=== PATIENT | female | born 1975 | race Caucasian/White ===

== ENCOUNTER 2016-10-13 15:10 | Emergency (ER) | payer BC, OTHER ==
[2016-10-13] MEDS ORDERED: DIPHENHYDRAMINE 50 MG/ML SOL IV ONE ×2 (15:27→19:15)
[2016-10-13] MEDS ORDERED: HYDROMORPHONE HCL 2 MG/ML 1 ML SOL IV ONE ×3 (15:28→18:08)
[2016-10-13] MEDS ORDERED: KETOROLAC TROMETHAMINE 30 MG/ML SOL IV ONE (15:28)
[2016-10-13] MEDS ORDERED: DIPHENHYDRAMINE 50 MG/ML SOL ONE ×2 (15:30→19:19)
[2016-10-13] MEDS ORDERED: KETOROLAC TROMETHAMINE 30 MG/ML SOL ONE (15:30)
[2016-10-13] MEDS ORDERED: HYDROMORPHONE HCL 2 MG/ML 1 ML SOL ONE ×3 (15:30→18:10)
[2016-10-13] MEDS ORDERED: SODIUM CHLORIDE 0.9% 1000ML 1,000 ML IV SCH (15:30)
[2016-10-13] MEDS ORDERED: SODIUM CHLORIDE 0.9% FLUSH 10 ML SOL IV PRN (16:07)
[2016-10-13] MEDS ORDERED: ONDANSETRON HCL 4 MG/2 ML 4 MG in SODIUM CHLORIDE 0.9% 100 ML 100 ML IV ONE (16:33)
[2016-10-13] MEDS ORDERED: ONDANSETRON HCL 4 MG/2 ML SOL IV ONE (16:35)
[2016-10-13] MEDS ORDERED: ONDANSETRON HCL 4 MG/2 ML SOL ONE (16:37)
[2016-10-13] MEDS ORDERED: SODIUM CHLORIDE 0.9% 1000ML 1,000 ML IV ONE (16:50)
[2016-10-13] MEDS ORDERED: WATER, STERILE 20 ML 20 ML ONE ×2 (17:52)
[2016-10-13] MEDS ORDERED: METHYLPREDNISOLONE 1 GM/ML PDS 1,000 MG/16 ML PDS IV ONE (18:00)
[2016-10-13] MEDS ORDERED: PROCHLORPERAZINE EDISYLATE 5 MG/ML SOL IV ONE (18:38)
[2016-10-13] MEDS ORDERED: PROCHLORPERAZINE EDISYLATE 5 MG/ML SOL ONE (18:40)
[2016-10-13 19:18] VITALS: BP 133/70; PULSE 67; RESP 12; TEMP 98.4; O2SAT 94
== END 2016-10-13 20:05 | disposition home or self-care (01) | DRG 103 ==
LOC: ED 15:10
DX: G43.119 Migraine with aura, intractable, without status migrainosus (principal); R11.2 Nausea with vomiting, unspecified
CPT/HCPCS: 96365; 96366; 96374; 96375; 99070; 99284; 99285; J0780; J1170; J1200; J1885; J2405; J2930

== ENCOUNTER 2016-11-24 19:07 | Emergency (ER) | payer OTHER ==
[2016-11-24 19:12] VITALS: TEMP 98
[2016-11-24] MEDS ORDERED: VALPROATE SODIUM IV ONE ×2 (19:21→19:38)
[2016-11-24] MEDS ORDERED: HYDROMORPHONE HCL 2 MG/ML SOL IV ONE ×3 (19:21→22:37)
[2016-11-24] MEDS ORDERED: SODIUM CHLORIDE 0.9% IV ONE (19:21)
[2016-11-24] MEDS ORDERED: DIPHENHYDRAMINE 50 MG/ML SOL IV ONE ×2 (19:21→21:46)
[2016-11-24] MEDS ORDERED: ONDANSETRON HCL 4 MG/2 ML SOL IV ONE (19:21)
[2016-11-24] MEDS ORDERED: SOLUMEDROL 125 MG/2 ML 125 MG/2 ML PDS IV ONE (19:22)
[2016-11-24] MEDS ORDERED: SODIUM CHLORIDE 0.9% 1000ML 1,000 ML IV SCH (19:30)
[2016-11-24] MEDS: SODIUM CHLORIDE 0.9% FLUSH 10 ML SOL IV PRN ×6 (19:33→22:50)
[2016-11-24] MEDS ORDERED: HYDROMORPHONE HCL 2 MG/ML SOL ONE ×3 (19:37→22:43)
[2016-11-24] MEDS ORDERED: METHYLPREDNISOLONE 1 GM/ML PDS 1,000 MG/16 ML PDS ONE (19:37)
[2016-11-24] MEDS ORDERED: DIPHENHYDRAMINE 50 MG/ML SOL ONE ×2 (19:38→21:47)
[2016-11-24] MEDS ORDERED: ONDANSETRON HCL 4 MG/2 ML SOL ONE (19:38)
[2016-11-24] MEDS ORDERED: WATER, STERILE 20 ML 40 ML ONE (19:42)
[2016-11-24] MEDS ORDERED: KETOROLAC TROMETHAMINE 30 MG/ML SOL IV ONE (21:04)
[2016-11-24] MEDS ORDERED: KETOROLAC TROMETHAMINE 30 MG/ML SOL ONE (21:09)
[2016-11-24 23:04] VITALS: RESP 14
[2016-11-24 23:11] VITALS: BP 146/64; PULSE 78; O2SAT 94
== END 2016-11-24 23:00 | disposition home or self-care (01) | DRG 103 ==
LOC: ED 19:07
DX: G43.911 Migraine, unspecified, intractable, with status migrainosus (principal)
CPT/HCPCS: 96365; 96374; 96375; 99070; 99283; 99285; J1170; J1200; J1885; J2405; J2930

== ENCOUNTER 2016-12-15 20:14 | Inpatient (IN) | payer OTHER ==
[2016-12-15] MEDS ORDERED: DIPHENHYDRAMINE 50 MG/ML SOL IV ONE ×2 (20:38→22:53)
[2016-12-15] MEDS ORDERED: ONDANSETRON HCL 4 MG/2 ML SOL IV ONE (20:38)
[2016-12-15] MEDS ORDERED: DIPHENHYDRAMINE 50 MG/ML SOL ONE ×2 (20:40→22:54)
[2016-12-15] MEDS ORDERED: ONDANSETRON HCL 4 MG/2 ML SOL ONE (20:40)
[2016-12-15] MEDS ORDERED: SODIUM CHLORIDE 0.9% IV PRN (20:41)
[2016-12-15] MEDS ORDERED: SOLUMEDROL 125 MG/2 ML 125 MG/2 ML PDS IV ONE (20:41)
[2016-12-15] MEDS ORDERED: VALPROATE SODIUM IV PRN (20:41)
[2016-12-15] MEDS ORDERED: HYDROMORPHONE HCL 2 MG/ML SOL IV ONE ×3 (20:42→23:12)
[2016-12-15] MEDS ORDERED: SODIUM CHLORIDE 0.9% 1000ML 1,000 ML IV ONE (20:42)
[2016-12-15] MEDS ORDERED: HYDROMORPHONE HCL 2 MG/ML SOL ONE ×3 (20:56→23:13)
[2016-12-15] MEDS ORDERED: VALPROATE SODIUM IV ONE (21:05)
[2016-12-15] MEDS ORDERED: SOLUMEDROL 125 MG/2 ML 125 MG/2 ML PDS ONE (21:05)
[2016-12-15] MEDS ORDERED: LORAZEPAM 2 MG/ML SOL IV ONE ×2 (21:31→22:18)
[2016-12-15] MEDS ORDERED: LORAZEPAM 2 MG/ML SOL ONE (21:32)
[2016-12-15] MEDS ORDERED: KETOROLAC TROMETHAMINE 30 MG/ML SOL IV ONE ×2 (22:26→22:27)
[2016-12-15] MEDS ORDERED: KETOROLAC TROMETHAMINE 30 MG/ML SOL ONE (22:27)
[2016-12-16] MEDS ORDERED: HYDROMORPHONE HCL 2 MG/ML SOL IV ONE (00:11)
[2016-12-16] MEDS ORDERED: HYDROMORPHONE HCL 2 MG/ML SOL ONE ×2 (00:12→08:08)
[2016-12-16] MEDS: SODIUM CHLORIDE 0.9% 1000ML 1,000 ML IV SCH ×4 (00:40→23:30)
[2016-12-16] MEDS ORDERED: PROCHLORPERAZINE EDISYLATE 5 MG/ML SOL IV PRN (01:21)
[2016-12-16] MEDS ORDERED: DIPHENHYDRAMINE 50 MG/ML SOL IV PRN (01:26)
[2016-12-16] MEDS ORDERED: NAPROXEN 250 MG TAB PO PRN (01:36)
[2016-12-16] MEDS ORDERED: TEMAZEPAM 15MG 15 MG CAP PO PRN (01:36)
[2016-12-16] MEDS ORDERED: ONDANSETRON HCL 4 MG TAB PO PRN (01:36)
[2016-12-16] MEDS ORDERED: PROMETHAZINE HYDROCHLORIDE 25 MG/ML SOL IV PRN (01:36)
[2016-12-16] MEDS ORDERED: HYDROMORPHONE 1 MG/ML SYRINGE ONE (03:43)
[2016-12-16] MEDS: HYDROMORPHONE HCL 2 MG/ML SOL IV PRN ×2 (03:53→08:13)
[2016-12-16] MEDS ORDERED: ACETAMINOPHEN 325 MG PO PRN (08:09)
[2016-12-16] MEDS: LEVOTHYROXINE SODIUM 50 MCG TAB PO SCH (08:17)
[2016-12-16] MEDS ORDERED: LEVOTHYROXINE SODIUM 50 MCG TAB PO SCH (09:00)
[2016-12-16] MEDS ORDERED: FUROSEMIDE 20 MG TAB PO SCH (09:00)
[2016-12-16] MEDS ORDERED: TOPIRAMATE 50 MG TAB PO SCH (09:00)
[2016-12-16] MEDS ORDERED: ALLOPURINOL 100 MG TAB PO SCH (09:00)
[2016-12-16] MEDS: PREDNISONE 20 MG TAB PO SCH (09:20)
[2016-12-16] MEDS: DIPHENHYDRAMINE 50 MG/ML SOL IV PRN ×4 (09:20→22:33)
[2016-12-16] MEDS: HYDROMORPHONE 1 MG/ML SYRINGE IV PRN ×5 (10:22→22:33)
[2016-12-16] MEDS: HYDROXYCHLOROQUINE SULFATE 200 MG TAB PO SCH ×2 (10:58→20:28)
[2016-12-16] MEDS ORDERED: ACETAMINOPHEN 325 MG PO SCH (14:00)
[2016-12-16] MEDS: ACETAMINOPHEN 325 MG PO SCH ×2 (15:11→20:28)
[2016-12-16] MEDS: TIZANIDINE HCL PO PRN (15:54)
[2016-12-16] MEDS: WARFARIN SODIUM 5 MG TAB PO SCH (18:28)
[2016-12-16] MEDS: TOPIRAMATE 200 MG TAB PO SCH (20:28)
[2016-12-16] MEDS: PREGABALIN 150 MG CAP PO SCH (20:28)
[2016-12-16] MEDS: PRAVASTATIN SODIUM 20 MG TAB PO SCH (20:29)
[2016-12-16] MEDS ORDERED: KETOROLAC TROMETHAMINE 30 MG/ML SOL IV ONE (20:49)
[2016-12-17] MEDS: TIZANIDINE HCL PO PRN ×2 (00:46→14:42)
[2016-12-17] MEDS: HYDROMORPHONE 1 MG/ML SYRINGE IV PRN ×8 (00:47→22:21)
[2016-12-17] MEDS: DIPHENHYDRAMINE 50 MG/ML SOL IV PRN ×4 (02:47→19:14)
[2016-12-17] MEDS: ACETAMINOPHEN 325 MG PO SCH ×4 (02:47→20:05)
[2016-12-17] MEDS ORDERED: HYDROMORPHONE HCL 2 MG/ML SOL ONE ×3 (06:00→12:50)
[2016-12-17] MEDS: LEVOTHYROXINE SODIUM 50 MCG TAB PO SCH (06:07)
[2016-12-17] MEDS: PREDNISONE 20 MG TAB PO SCH (08:36)
[2016-12-17] MEDS: FUROSEMIDE 40 MG TAB PO SCH (08:37)
[2016-12-17] MEDS: HYDROXYCHLOROQUINE SULFATE 200 MG TAB PO SCH ×2 (08:37→20:56)
[2016-12-17] MEDS ORDERED: VALPROATE SODIUM IV ONE ×2 (09:00→10:16)
[2016-12-17] MEDS ORDERED: SODIUM CHLORIDE 0.9% IV ONE (09:00)
[2016-12-17] MEDS ORDERED: SODIUM CHLORIDE 0.9% 100 ML 100 ML IV ONE (10:16)
[2016-12-17] MEDS: SODIUM CHLORIDE 0.9% FLUSH 10 ML SOL IV PRN ×5 (13:05→23:28)
[2016-12-17 17:33] VITALS: PULSE 70
[2016-12-17] MEDS: WARFARIN SODIUM 5 MG TAB PO SCH (18:07)
[2016-12-17] MEDS: PRAVASTATIN SODIUM 20 MG TAB PO SCH (20:53)
[2016-12-17] MEDS: TOPIRAMATE 200 MG TAB PO SCH (20:55)
[2016-12-17] MEDS: PREGABALIN 150 MG CAP PO SCH (20:56)
[2016-12-17] MEDS ORDERED: NAPROXEN 500 MG TAB PO SCH (21:00)
[2016-12-17] MEDS ORDERED: DIPHENHYDRAMINE 50 MG/ML SOL IV ONE ×2 (21:08→22:10)
[2016-12-17] MEDS: LORAZEPAM 2 MG/ML SOL IV PRN (23:28)
[2016-12-18] MEDS: SODIUM CHLORIDE 0.9% 1000ML 1,000 ML IV SCH
[2016-12-18] MEDS ORDERED: KETOROLAC TROMETHAMINE 30 MG/ML SOL IV ONE ×2 (01:36→08:21)
[2016-12-18] MEDS ORDERED: GABAPENTIN 300 MG CAP PO ONE (01:37)
[2016-12-18] MEDS ORDERED: GABAPENTIN 300 MG CAP ONE (01:48)
[2016-12-18] MEDS: ACETAMINOPHEN 325 MG PO SCH ×3 (01:52→14:11)
[2016-12-18] MEDS: SODIUM CHLORIDE 0.9% FLUSH 10 ML SOL IV PRN ×5 (01:56→16:03)
[2016-12-18] MEDS: LORAZEPAM 2 MG/ML SOL IV PRN ×5 (04:06→16:03)
[2016-12-18] MEDS: DIPHENHYDRAMINE 50 MG/ML SOL IV PRN (04:06)
[2016-12-18] MEDS: LEVOTHYROXINE SODIUM 50 MCG TAB PO SCH (06:57)
[2016-12-18] MEDS ORDERED: SODIUM CHLORIDE 0.9% IV PRN (08:21)
[2016-12-18] MEDS ORDERED: VALPROATE SODIUM IV PRN (08:21)
[2016-12-18] MEDS ORDERED: SODIUM CHLORIDE 0.9% 1000ML 1,000 ML IV ONE (08:32)
[2016-12-18] MEDS: FUROSEMIDE 40 MG TAB PO SCH (08:48)
[2016-12-18] MEDS: HYDROXYCHLOROQUINE SULFATE 200 MG TAB PO SCH (08:49)
[2016-12-18] MEDS: SOLUMEDROL 125 MG/2 ML 125 MG/2 ML PDS IV SCH ×2 (09:26→14:11)
[2016-12-18] MEDS ORDERED: VALPROATE SODIUM IV ONE (11:34)
[2016-12-18] MEDS ORDERED: SODIUM CHLORIDE 0.9% 100 ML 100 ML IV ONE (11:34)
[2016-12-18 16:10] VITALS: BP 146/96; RESP 16; TEMP 98.5; O2SAT 94
== END 2016-12-18 16:40 | disposition home or self-care (01) | DRG 103 ==
LOC: ED 20:14 → ACUTE CARE 12-16 00:35 → ED 12-16 00:46
PROVIDERS: ADMIT Family Medicine; ATTEND Family Medicine
DX: G43.011 Migraine without aura, intractable, with status migrainosus (principal); I10 Essential (primary) hypertension; Z79.01 Long term (current) use of anticoagulants
CPT/HCPCS: 36415; 70450; 85610; 94760; 96365; 96366; 96374; 96375; 99070; 99222; 99285; J0780; J1170; J1200; J1885; J2060; J2405; J2550; J2930

== ENCOUNTER 2017-03-18 14:10 | Emergency (ER) | payer OTHER ==
[2017-03-18] MEDS ORDERED: DIPHENHYDRAMINE 50 MG/ML SOL IV ONE (14:29)
[2017-03-18] MEDS ORDERED: METOCLOPRAMIDE HYDROCHLORIDE 5 MG/ML SOL IV ONE (14:29)
[2017-03-18] MEDS ORDERED: PHENYLEPHRINE HCL 0.5% SPR NAS ONE ×2 (14:30→14:34)
[2017-03-18] MEDS ORDERED: DIPHENHYDRAMINE 50 MG/ML SOL ONE (14:50)
[2017-03-18] MEDS ORDERED: METOCLOPRAMIDE HYDROCHLORIDE 5 MG/ML SOL ONE (14:50)
[2017-03-18 15:30] VITALS: TEMP 97.9
[2017-03-18 15:43] VITALS: RESP 16
[2017-03-18] MEDS: SODIUM CHLORIDE 0.9% FLUSH 10 ML SOL IV PRN ×2 (16:23→17:28)
[2017-03-18] MEDS ORDERED: ONDANSETRON HCL 4 MG/2 ML SOL IV ONE (17:21)
[2017-03-18] MEDS ORDERED: HYDROMORPHONE HCL 2 MG/ML SOL IV ONE (17:21)
[2017-03-18] MEDS ORDERED: HYDROMORPHONE 1 MG/ML SYRINGE ONE ×2 (17:23→18:20)
[2017-03-18] MEDS ORDERED: ONDANSETRON HCL 4 MG/2 ML SOL ONE (17:23)
[2017-03-18] MEDS ORDERED: HYDROMORPHONE HCL 2 MG/ML SOL IM ONE (18:08)
[2017-03-18 18:36] VITALS: BP 151/92; PULSE 78; O2SAT 100
== END 2017-03-18 19:18 | disposition home or self-care (01) | DRG 151 ==
LOC: ED 14:10
DX: R04.0 Epistaxis (principal); D68.2 Hereditary deficiency of other clotting factors; Z79.01 Long term (current) use of anticoagulants; G43.909 Migraine, unspecified, not intractable, without status migrainosus; T45.515A Adverse effect of anticoagulants, initial encounter
CPT/HCPCS: 36415; 85610; 96374; 96375; 99284; 99285; J1200; J2405; J2765; J1170

== ENCOUNTER 2017-04-07 17:15 | Emergency (ER) | payer OTHER ==
[2017-04-07] MEDS ORDERED: ONDANSETRON 4 MG ODT BU ONE (17:28)
[2017-04-07] MEDS ORDERED: KETOROLAC TROMETHAMINE 30 MG/ML SOL IM ONE (17:28)
[2017-04-07 17:29] VITALS: TEMP 97.8
[2017-04-07] MEDS ORDERED: ONDANSETRON 4 MG ODT ONE (17:29)
[2017-04-07] MEDS ORDERED: KETOROLAC TROMETHAMINE 30 MG/ML SOL ONE (17:29)
[2017-04-07] MEDS ORDERED: HYDROMORPHONE HCL 2 MG/ML SOL IV ONE ×4 (17:36→21:31)
[2017-04-07] MEDS ORDERED: DIPHENHYDRAMINE 50 MG/ML SOL IV ONE ×2 (17:36→20:47)
[2017-04-07] MEDS ORDERED: HYDROMORPHONE 1 MG/ML SYRINGE ONE ×4 (18:05→21:32)
[2017-04-07] MEDS ORDERED: DIPHENHYDRAMINE 50 MG/ML SOL ONE ×2 (18:05→20:49)
[2017-04-07] MEDS: SODIUM CHLORIDE 0.9% FLUSH 10 ML SOL IV PRN ×4 (18:10→20:45)
[2017-04-07] MEDS ORDERED: SODIUM CHLORIDE 0.9% 1000ML 1,000 ML IV ONE (18:30)
[2017-04-07] MEDS ORDERED: SOLUMEDROL 125 MG/2 ML 125 MG/2 ML PDS IV ONE (18:51)
[2017-04-07] MEDS ORDERED: SOLUMEDROL 125 MG/2 ML 125 MG/2 ML PDS ONE (19:00)
[2017-04-07] MEDS ORDERED: LORAZEPAM 2 MG/ML SOL IV ONE (19:45)
[2017-04-07] MEDS ORDERED: LORAZEPAM 2 MG/ML SOL ONE (19:49)
[2017-04-07 21:23] VITALS: RESP 12
[2017-04-07 22:10] VITALS: BP 159/78; PULSE 75; O2SAT 98
== END 2017-04-07 22:05 | disposition home or self-care (01) | DRG 103 ==
LOC: ED 17:15
DX: G43.119 Migraine with aura, intractable, without status migrainosus (principal)
CPT/HCPCS: 96365; 96366; 96372; 96374; 96375; 99284; 99285; J1200; J1885; J2060; J2930; J1170

== ENCOUNTER 2017-06-06 17:10 | Emergency (ER) | payer OTHER ==
[2017-06-06 17:15] VITALS: TEMP 98.6
[2017-06-06] MEDS ORDERED: DIPHENHYDRAMINE 50 MG/ML SOL ONE ×3 (17:34→19:14)
[2017-06-06] MEDS ORDERED: ONDANSETRON HCL 4 MG/2 ML SOL ONE (17:34)
[2017-06-06] MEDS ORDERED: HYDROMORPHONE HCL 2 MG/ML SOL ONE ×3 (17:34→21:17)
[2017-06-06] MEDS ORDERED: KETOROLAC TROMETHAMINE 30 MG/ML SOL ONE (17:34)
[2017-06-06] MEDS ORDERED: HYDROMORPHONE HCL 2 MG/ML SOL IV ONE ×3 (17:35→21:16)
[2017-06-06] MEDS ORDERED: ONDANSETRON HCL 4 MG/2 ML SOL IV ONE (17:35)
[2017-06-06] MEDS ORDERED: DIPHENHYDRAMINE 50 MG/ML SOL IV ONE ×3 (17:35→19:14)
[2017-06-06] MEDS ORDERED: KETOROLAC TROMETHAMINE 30 MG/ML SOL IV ONE (17:35)
[2017-06-06] MEDS ORDERED: SODIUM CHLORIDE 0.9% 1000 ML SOL IV SCH (17:45)
[2017-06-06] MEDS ORDERED: SODIUM CHLORIDE 0.9% FLUSH 10 ML SOL IV PRN (17:50)
[2017-06-06 18:14] LABS: CALCIUM 9.1 mg/dl (8.5-10.1)
[2017-06-06 18:17] LABS: POTASSIUM 2.9 mMol/L (3.5-5.1)
[2017-06-06] MEDS ORDERED: LABETALOL HYDROCHLORIDE 5 MG/ML SOL IV ONE ×3 (18:35→18:39)
[2017-06-06] MEDS ORDERED: POTASSIUM CHLORIDE 10 MEQ TER PO ONE (18:35)
[2017-06-06] MEDS ORDERED: POTASSIUM CHLORIDE 10 MEQ TER ONE (18:38)
[2017-06-06] MEDS ORDERED: PROMETHAZINE HYDROCHLORIDE 25 MG/ML SOL IV ONE (18:51)
[2017-06-06] MEDS ORDERED: PROMETHAZINE HYDROCHLORIDE 25 MG/ML SOL ONE (18:52)
[2017-06-06] MEDS ORDERED: SOLUMEDROL 125 MG/2 ML 125 MG/2 ML PDS IV ONE (18:54)
[2017-06-06] MEDS ORDERED: SOLUMEDROL 125 MG/2 ML 125 MG/2 ML PDS ONE (18:56)
[2017-06-06 19:27] VITALS: RESP 18
[2017-06-06] MEDS ORDERED: RANITIDINE HYDROCHLORIDE 25 MG/ML SOL ONE (20:07)
[2017-06-06] MEDS ORDERED: RANITIDINE HCL IV ONE (20:08)
[2017-06-06] MEDS ORDERED: SODIUM CHLORIDE 0.9% IV ONE (20:08)
[2017-06-06 22:00] VITALS: O2SAT 90
[2017-06-06 22:01] VITALS: BP 172/83; PULSE 78
== END 2017-06-06 21:56 | disposition home or self-care (01) | DRG 103 ==
LOC: ED 17:10
DX: G43.511 Persistent migraine aura without cerebral infarction, intractable, with status migrainosus (principal); E87.6 Hypokalemia; L29.9 Pruritus, unspecified; T44.8X5A Adverse effect of centrally-acting and adrenergic-neuron-blocking agents, initial encounter
CPT/HCPCS: 36415; 80048; 85610; 99285; J1170; J1200; J1885; J2405; J2550; J2780; J2930

== ENCOUNTER 2017-10-31 19:29 | Inpatient (IN) | payer OTHER ==
[2017-10-31] MEDS ORDERED: KETOROLAC TROMETHAMINE 30 MG/ML SOL IV ONE (19:39)
[2017-10-31] MEDS ORDERED: HYDROMORPHONE HCL 2 MG/ML SOL IV ONE ×3 (19:39→21:24)
[2017-10-31] MEDS ORDERED: DIPHENHYDRAMINE 50 MG/ML SOL IV ONE ×2 (19:39→20:34)
[2017-10-31] MEDS ORDERED: SODIUM CHLORIDE 0.9% 1000 ML SOL IV SCH (19:45)
[2017-10-31] MEDS ORDERED: KETOROLAC TROMETHAMINE 30 MG/ML SOL ONE (19:48)
[2017-10-31] MEDS ORDERED: DIPHENHYDRAMINE 50 MG/ML SOL ONE ×2 (19:48→20:36)
[2017-10-31] MEDS ORDERED: HYDROMORPHONE HCL 2 MG/ML SOL ONE ×3 (19:48→21:26)
[2017-10-31] MEDS ORDERED: ONDANSETRON HCL 4 MG/2 ML SOL IV ONE (19:57)
[2017-10-31] MEDS ORDERED: ONDANSETRON HCL 4 MG/2 ML SOL ONE (19:59)
[2017-10-31 20:26] LABS: BASOPHILS % (AUTO) 1 % (0-3); EOSINOPHILS % (AUTO) 2 % (0-9); HEMATOCRIT 45 % (35-47); HEMOGLOBIN 15.3 gm/dl (12.0-15.5); LYMPHOCYTES % (AUTO) 23.2 % (10-50); MEAN CORPUSCULAR HEMOGLOBIN 29.2 pg (27.0-32.0); MEAN CORPUSCULAR HGB CONC 34.2 gm/dl (32.0-36.0); MEAN CORPUSCULAR VOLUME 85 fL (81-99); MONOCYTES % (AUTO) 9.9 % (0-12); NEUTROPHILS % (AUTO) 63.8 % (37-80)
[2017-10-31 20:29] LABS: CALCIUM 8.9 mg/dl (8.5-10.1); CARBON DIOXIDE 31.7 mEq/L (21-32); CREATININE 1.05 mg/dl (0.60-1.00); POTASSIUM 3.3 mMol/L (3.5-5.1)
[2017-10-31 20:33] LABS: INR 4.29 (0.86-1.12)
[2017-10-31] MEDS ORDERED: LORAZEPAM 2 MG/ML SOL IV PRN (21:03)
[2017-10-31] MEDS ORDERED: LORAZEPAM 2 MG/ML SOL ONE (21:07)
[2017-10-31] MEDS ORDERED: TEMAZEPAM 15MG 15 MG CAP PO PRN (22:30)
[2017-10-31] MEDS ORDERED: PROMETHAZINE HCL 6.25 MG/5 ML SYRP PO PRN (22:30)
[2017-10-31] MEDS ORDERED: KETOROLAC TROMETHAMINE 30 MG/ML SOL IV SCH (22:45)
[2017-11-01] MEDS: HYDROMORPHONE 1 MG/ML SYRINGE IV PRN ×2 (00:18→04:24)
[2017-11-01] MEDS ORDERED: POTASSIUM CHLORIDE 10 MEQ TER PO ONE (00:30)
[2017-11-01] MEDS: KETOROLAC TROMETHAMINE 30 MG/ML SOL IV PRN ×2 (03:42→20:34)
[2017-11-01] MEDS: DIPHENHYDRAMINE 50 MG/ML SOL IV PRN ×3 (04:22→20:34)
[2017-11-01] MEDS: ONDANSETRON HCL 4 MG/2 ML SOL IV PRN ×2 (04:33→12:26)
[2017-11-01] MEDS: LEVOTHYROXINE SODIUM 50 MCG TAB PO SCH (06:37)
[2017-11-01 07:16] LABS: CALCIUM 8.5 mg/dl (8.5-10.1); CREATININE 1.1 mg/dl (0.60-1.00)
[2017-11-01] MEDS: HYDROMORPHONE HCL 2 MG/ML SOL IV PRN ×5 (07:30→22:07)
[2017-11-01 07:31] LABS: INR 3.58 (0.86-1.12)
[2017-11-01] MEDS ORDERED: METHYLPREDNISOLONE 1 GM/ML PDS 1,000 MG/16 ML PDS IV ONE (09:00)
[2017-11-01] MEDS ORDERED: FUROSEMIDE 20 MG TAB PO SCH (09:00)
[2017-11-01] MEDS ORDERED: POTASSIUM CHLORIDE 10 MEQ CAPSULE PO SCH (09:00)
[2017-11-01] MEDS: SODIUM CHLORIDE 0.9% FLUSH 10 ML SOL IV SCH ×7 (09:09→23:25)
[2017-11-01] MEDS: FEBUXOSTAT 120 MG PO SCH (10:46)
[2017-11-01] MEDS: PREGABALIN 150 MG CAP PO SCH ×2 (10:49→20:52)
[2017-11-01] MEDS: HYDROXYCHLOROQUINE SULFATE 200 MG TAB PO SCH ×2 (10:50→20:49)
[2017-11-01] MEDS: POTASSIUM CHLORIDE 10 MEQ TER PO SCH ×3 (10:50→20:49)
[2017-11-01] MEDS: FUROSEMIDE 20 MG TAB PO SCH (14:06)
[2017-11-01] MEDS: DOXEPIN 25 MG CAP PO SCH (20:50)
[2017-11-01] MEDS: PRAVASTATIN SODIUM 20 MG TAB PO SCH (20:51)
[2017-11-01] MEDS: TIZANIDINE HCL 8 MG PO PRN (21:46)
[2017-11-02] MEDS: HYDROMORPHONE HCL 2 MG/ML SOL IV PRN ×6 (04:43→21:36)
[2017-11-02] MEDS: DIPHENHYDRAMINE 50 MG/ML SOL IV PRN ×3 (05:23→21:36)
[2017-11-02] MEDS: SODIUM CHLORIDE 0.9% FLUSH 10 ML SOL IV SCH ×5 (05:23→22:53)
[2017-11-02] MEDS: LEVOTHYROXINE SODIUM 50 MCG TAB PO SCH (06:14)
[2017-11-02] MEDS: PREGABALIN 150 MG CAP PO SCH ×2 (08:57→21:54)
[2017-11-02] MEDS: FEBUXOSTAT 120 MG PO SCH (08:57)
[2017-11-02] MEDS: HYDROXYCHLOROQUINE SULFATE 200 MG TAB PO SCH ×2 (08:58→21:52)
[2017-11-02] MEDS: FUROSEMIDE 20 MG TAB PO SCH ×2 (08:58→12:16)
[2017-11-02] MEDS: POTASSIUM CHLORIDE 10 MEQ TER PO SCH ×3 (08:59→21:52)
[2017-11-02] MEDS: TIZANIDINE HCL 8 MG PO PRN (09:00)
[2017-11-02 09:28] LABS: INR 2.89 (0.86-1.12)
[2017-11-02] MEDS: KETOROLAC TROMETHAMINE 30 MG/ML SOL IV PRN (12:16)
[2017-11-02] MEDS: WARFARIN SODIUM 5 MG TAB PO SCH (17:38)
[2017-11-02] MEDS: DOXEPIN 25 MG CAP PO SCH (21:53)
[2017-11-02] MEDS: PRAVASTATIN SODIUM 20 MG TAB PO SCH (21:55)
[2017-11-03] MEDS: HYDROMORPHONE HCL 2 MG/ML SOL IV PRN ×6 (00:40→20:12)
[2017-11-03] MEDS: TIZANIDINE HCL 8 MG PO PRN ×3 (00:41→21:36)
[2017-11-03] MEDS: DIPHENHYDRAMINE 50 MG/ML SOL IV PRN ×4 (07:02→21:30)
[2017-11-03] MEDS: SODIUM CHLORIDE 0.9% FLUSH 10 ML SOL IV SCH ×3 (07:02→21:30)
[2017-11-03] MEDS: LEVOTHYROXINE SODIUM 50 MCG TAB PO SCH (07:02)
[2017-11-03 07:43] LABS: INR 2.33 (0.86-1.12)
[2017-11-03] MEDS ORDERED: SODIUM CHLORIDE 0.9% IV PRN ×2 (08:03→09:00)
[2017-11-03] MEDS ORDERED: VALPROATE SODIUM IV PRN ×2 (08:03→09:00)
[2017-11-03] MEDS ORDERED: SOLUMEDROL 125 MG/2 ML 125 MG/2 ML PDS IV SCH (08:15)
[2017-11-03] MEDS ORDERED: SODIUM CHLORIDE 0.9% 500 ML 500 ML IV SCH (08:15)
[2017-11-03] MEDS: HYDROXYCHLOROQUINE SULFATE 200 MG TAB PO SCH ×2 (08:47→21:07)
[2017-11-03] MEDS: POTASSIUM CHLORIDE 10 MEQ TER PO SCH ×3 (08:48→21:04)
[2017-11-03] MEDS: FEBUXOSTAT 120 MG PO SCH (08:48)
[2017-11-03] MEDS: FUROSEMIDE 20 MG TAB PO SCH ×2 (08:48→12:25)
[2017-11-03] MEDS: PREGABALIN 150 MG CAP PO SCH ×2 (08:49→21:07)
[2017-11-03] MEDS ORDERED: VALPROATE SODIUM IV ONE (10:44)
[2017-11-03] MEDS ORDERED: SODIUM CHLORIDE 0.9% 100 ML 100 ML IV ONE (10:44)
[2017-11-03] MEDS: WARFARIN SODIUM 5 MG TAB PO SCH (17:52)
[2017-11-03] MEDS: DOXEPIN 25 MG CAP PO SCH (21:03)
[2017-11-03] MEDS: PRAVASTATIN SODIUM 20 MG TAB PO SCH (21:04)
[2017-11-04] MEDS: SODIUM CHLORIDE 0.9% FLUSH 10 ML SOL IV SCH ×3 (01:38→09:46)
[2017-11-04] MEDS: HYDROMORPHONE HCL 2 MG/ML SOL IV PRN ×5 (01:39→16:02)
[2017-11-04] MEDS: DIPHENHYDRAMINE 50 MG/ML SOL IV PRN ×3 (03:40→16:09)
[2017-11-04] MEDS: TIZANIDINE HCL 8 MG PO PRN (05:49)
[2017-11-04] MEDS: LEVOTHYROXINE SODIUM 50 MCG TAB PO SCH (06:53)
[2017-11-04] MEDS: ONDANSETRON HCL 4 MG/2 ML SOL IV PRN (06:57)
[2017-11-04 07:30] LABS: CALCIUM 8.8 mg/dl (8.5-10.1); CARBON DIOXIDE 37.3 mEq/L (21-32); CREATININE 0.92 mg/dl (0.60-1.00)
[2017-11-04 07:35] LABS: HEMATOCRIT 41 % (35-47); HEMOGLOBIN 14.1 gm/dl (12.0-15.5); MEAN CORPUSCULAR HEMOGLOBIN 29.8 pg (27.0-32.0); MEAN CORPUSCULAR HGB CONC 34.4 gm/dl (32.0-36.0); MEAN CORPUSCULAR VOLUME 86 fL (81-99)
[2017-11-04 07:47] LABS: INR 2.43 (0.86-1.12)
[2017-11-04 08:11] LABS: BAND NEUTROPHILS % (MANUAL) 6 %; BASOPHILS % (MANUAL) 0 % (0-3); EOSINOPHILS % (MANUAL) 0 % (0-9); LYMPHOCYTES % (MANUAL) 2 % (10-50); MONOCYTES % (MANUAL) 3 % (0-12); NEUTROPHILS % (MANUAL) 89 % (37-80); NORMAL RBCS PRESENT
[2017-11-04 08:12] VITALS: BP 130/78; PULSE 70; TEMP 98.3
[2017-11-04] MEDS: FUROSEMIDE 20 MG TAB PO SCH ×2 (08:25→11:29)
[2017-11-04] MEDS: POTASSIUM CHLORIDE 10 MEQ TER PO SCH ×2 (08:25→16:06)
[2017-11-04] MEDS: PREGABALIN 150 MG CAP PO SCH (09:59)
[2017-11-04] MEDS: HYDROXYCHLOROQUINE SULFATE 200 MG TAB PO SCH (10:00)
[2017-11-04] MEDS: FEBUXOSTAT 120 MG PO SCH (11:21)
[2017-11-04 14:21] VITALS: RESP 10
[2017-11-04 18:32] VITALS: O2SAT 99
== END 2017-11-04 16:35 | disposition short-term general hospital (02) | DRG 103 ==
LOC: ED 19:29 → ACUTE CARE 22:20 → OBSVTOIN 11-01 08:09
PROVIDERS: ADMIT Family Medicine; ATTEND Family Medicine
DX: G43.011 Migraine without aura, intractable, with status migrainosus (principal); R11.0 Nausea
CPT/HCPCS: 36415; 80048; 85007; 85025; 85027; 85610; 93012; 94762; 96365; 96366; 96374; 96375; 99218; 99285; J1170; J1200; J1885; J2060; J2405; J2930; A9270-GY; J3490

== ENCOUNTER 2017-12-26 12:22 | Emergency (ER) | payer OTHER ==
[2017-12-26] MEDS ORDERED: DIPHENHYDRAMINE 50 MG/ML SOL IV ONE ×2 (12:31→13:02)
[2017-12-26] MEDS ORDERED: PROCHLORPERAZINE EDISYLATE 5 MG/ML SOL IV ONE (12:31)
[2017-12-26] MEDS ORDERED: SODIUM CHLORIDE 0.9% 1000ML 1,000 ML IV ONE (12:31)
[2017-12-26] MEDS ORDERED: KETOROLAC TROMETHAMINE 30 MG/ML SOL IV ONE (12:31)
[2017-12-26] MEDS ORDERED: KETOROLAC TROMETHAMINE 30 MG/ML SOL ONE (12:42)
[2017-12-26] MEDS ORDERED: PROCHLORPERAZINE EDISYLATE 5 MG/ML SOL ONE (12:42)
[2017-12-26] MEDS ORDERED: DIPHENHYDRAMINE 50 MG/ML SOL ONE ×2 (12:42→13:04)
[2017-12-26] MEDS ORDERED: HYDROMORPHONE HCL 2 MG/ML SOL IV ONE ×3 (13:02→15:09)
[2017-12-26] MEDS ORDERED: HYDROMORPHONE HCL 2 MG/ML SOL ONE ×3 (13:03→15:11)
[2017-12-26] MEDS ORDERED: SODIUM CHLORIDE 0.9% 1000ML 1,000 ML IV SCH (14:45)
[2017-12-26] MEDS ORDERED: PREDNISONE 20 MG TAB PO ONE (15:42)
[2017-12-26] MEDS ORDERED: ONDANSETRON HCL 4 MG/2 ML SOL IV ONE (15:44)
[2017-12-26] MEDS ORDERED: PREDNISONE 20 MG TAB ONE (15:46)
[2017-12-26] MEDS ORDERED: ONDANSETRON HCL 4 MG/2 ML SOL ONE (15:46)
[2017-12-26] MEDS ORDERED: LORAZEPAM 2 MG/ML SOL IV ONE ×2 (16:31→18:20)
[2017-12-26] MEDS ORDERED: LORAZEPAM 2 MG/ML SOL ONE ×2 (16:35→18:22)
[2017-12-26 17:20] VITALS: RESP 16; O2SAT 96
[2017-12-26 18:30] VITALS: BP 152/83; PULSE 72; TEMP 97.1
== END 2017-12-26 18:42 | disposition short-term general hospital (02) | DRG 103 ==
LOC: ED 12:22
DX: G43.011 Migraine without aura, intractable, with status migrainosus (principal)
CPT/HCPCS: 70450; 96365; 96366; 96374; 96375; 99284; 99285; J0780; J1170; J1200; J1885; J2060; J2405; A9270-GY

== ENCOUNTER 2018-03-27 09:31 | Emergency (ER) | payer OTHER ==
[2018-03-27] MEDS ORDERED: DIPHENHYDRAMINE 50 MG/ML SOL IV ONE (09:58)
[2018-03-27] MEDS ORDERED: PROMETHAZINE HYDROCHLORIDE 25 MG/ML SOL IV ONE (09:59)
[2018-03-27] MEDS ORDERED: SODIUM CHLORIDE 0.9% 500 ML 500 ML IV ONE (09:59)
[2018-03-27 10:00] VITALS: RESP 20
[2018-03-27] MEDS ORDERED: HALOPERIDOL LACTATE 5 MG/ML SOL IV ONE (10:00)
[2018-03-27] MEDS ORDERED: DIPHENHYDRAMINE 50 MG/ML SOL ONE (10:02)
[2018-03-27] MEDS ORDERED: HALOPERIDOL LACTATE 5 MG/ML SOL ONE (10:12)
[2018-03-27 11:01] VITALS: TEMP 99.2
[2018-03-27] MEDS ORDERED: HYDROMORPHONE HCL 2 MG/ML SOL IV ONE ×3 (11:29→12:41)
[2018-03-27] MEDS ORDERED: CYCLOBENZAPRINE 10 MG TAB PO ONE (11:30)
[2018-03-27] MEDS ORDERED: HYDROMORPHONE 1 MG/ML SYRINGE ONE ×2 (11:31→12:46)
[2018-03-27] MEDS ORDERED: HYDROMORPHONE 1 MG/ML SYRINGE IV ONE ×2 (11:33→12:46)
[2018-03-27] MEDS ORDERED: CYCLOBENZAPRINE 10 MG TAB ONE (11:35)
[2018-03-27] MEDS ORDERED: LORAZEPAM 2 MG/ML SOL IV ONE (11:55)
[2018-03-27] MEDS ORDERED: LORAZEPAM 2 MG/ML SOL ONE (12:17)
[2018-03-27 12:22] VITALS: BP 149/77; PULSE 73; O2SAT 94
== END 2018-03-27 13:08 | disposition home or self-care (01) | DRG 103 ==
LOC: ED 09:31
DX: G43.519 Persistent migraine aura without cerebral infarction, intractable, without status migrainosus (principal)
CPT/HCPCS: 96365; 99284; 99285; J1200; J1630; J2060; A9270-GY; J1170

== ENCOUNTER 2018-04-21 09:35 | Emergency (ER) | payer OTHER ==
[2018-04-21 09:40] VITALS: RESP 16; TEMP 97.4
[2018-04-21] MEDS ORDERED: DIPHENHYDRAMINE 50 MG/ML SOL IV ONE ×3 (09:46→12:47)
[2018-04-21] MEDS ORDERED: HYDROMORPHONE HCL 2 MG/ML SOL IV ONE ×2 (09:46→11:09)
[2018-04-21] MEDS: SODIUM CHLORIDE 0.9% FLUSH 10 ML SOL IV PRN ×3 (09:50→12:55)
[2018-04-21] MEDS ORDERED: HYDROMORPHONE 1 MG/ML SYRINGE ONE ×4 (10:04→12:51)
[2018-04-21] MEDS: SODIUM CHLORIDE 0.9% 1000ML 1,000 ML IV SCH ×3 (10:05→12:02)
[2018-04-21] MEDS ORDERED: DIPHENHYDRAMINE 50 MG/ML SOL ONE ×3 (10:05→12:51)
[2018-04-21 10:51] VITALS: O2SAT 97
[2018-04-21] MEDS ORDERED: ONDANSETRON HCL 4 MG/2 ML SOL IV ONE (11:55)
[2018-04-21] MEDS ORDERED: HYDROMORPHONE 1 MG/ML SYRINGE IV ONE (11:55)
[2018-04-21] MEDS ORDERED: ONDANSETRON HCL 4 MG/2 ML SOL ONE (11:56)
[2018-04-21] MEDS ORDERED: HYDROMORPHONE 1 MG/ML SYRINGE IV PRN (12:47)
[2018-04-21] MEDS ORDERED: HYDROMORPHONE 1 MG/ML SYRINGE IM PRN (13:12)
[2018-04-21 15:24] VITALS: BP 148/74; PULSE 74
== END 2018-04-21 13:40 | disposition home or self-care (01) | DRG 103 ==
LOC: ED 09:35
DX: G43.511 Persistent migraine aura without cerebral infarction, intractable, with status migrainosus (principal)
CPT/HCPCS: 96365; 96372; 96374; 96375; 99283; 99285; J1200; J2405; J1170

== ENCOUNTER 2018-04-26 14:38 | Emergency (ER) | payer OTHER ==
[2018-04-26] MEDS: SODIUM CHLORIDE 0.9% FLUSH 10 ML SOL IV PRN ×2 (15:35→15:50)
[2018-04-26] MEDS ORDERED: DIPHENHYDRAMINE 50 MG/ML SOL IV ONE ×2 (15:38→17:09)
[2018-04-26] MEDS ORDERED: HYDROMORPHONE 1 MG/ML SYRINGE IV ONE ×3 (15:39→19:11)
[2018-04-26] MEDS ORDERED: HYDROMORPHONE 1 MG/ML SYRINGE ONE ×3 (15:40→19:05)
[2018-04-26] MEDS ORDERED: DIPHENHYDRAMINE 50 MG/ML SOL ONE ×2 (15:42→17:12)
[2018-04-26 16:23] VITALS: BP 151/85; RESP 14
[2018-04-26] MEDS ORDERED: HYDROMORPHONE 1 MG/ML SYRINGE IV STA (16:26)
[2018-04-26 16:57] VITALS: PULSE 89; TEMP 99.2
[2018-04-26] MEDS ORDERED: CYCLOBENZAPRINE 10 MG TAB PO ONE (17:09)
[2018-04-26] MEDS ORDERED: LORAZEPAM 2 MG/ML SOL IV ONE (17:09)
[2018-04-26] MEDS ORDERED: LORAZEPAM 2 MG/ML SOL ONE (17:11)
[2018-04-26] MEDS ORDERED: CYCLOBENZAPRINE 10 MG TAB ONE (17:13)
[2018-04-26 17:24] LABS: BASOPHILS % (AUTO) 0 % (0-3); EOSINOPHILS % (AUTO) 0 % (0-9); HEMATOCRIT 48 % (35-47); LYMPHOCYTES % (AUTO) 12.6 % (10-50); MEAN CORPUSCULAR HEMOGLOBIN 28.9 pg (27.0-32.0); MEAN CORPUSCULAR HGB CONC 33.4 gm/dl (32.0-36.0); MEAN CORPUSCULAR VOLUME 86 fL (81-99); MONOCYTES % (AUTO) 7.6 % (0-12); NEUTROPHILS % (AUTO) 79.1 % (37-80)
[2018-04-26] MEDS ORDERED: SODIUM CHLORIDE 0.9% 1000ML 1,000 ML IV ONE ×2 (17:29→18:15)
[2018-04-26 17:32] LABS: CALCIUM 9.3 mg/dl (8.5-10.1); CARBON DIOXIDE 24.2 mEq/L (21-32); CREATININE 0.9 mg/dl (0.60-1.00); POTASSIUM 3.8 mMol/L (3.5-5.1)
[2018-04-26] MEDS ORDERED: VALPROATE SODIUM IV ONE ×2 (18:14→18:17)
[2018-04-26] MEDS ORDERED: SODIUM CHLORIDE 0.9% IV ONE (18:14)
[2018-04-26] MEDS ORDERED: DEXAMETHASONE 20 MG/5 ML (4 MG/ML SOL) IV ONE (18:52)
[2018-04-26] MEDS ORDERED: HYDROMORPHONE HCL 2 MG/ML SOL IV ONE (18:52)
[2018-04-26] MEDS ORDERED: DEXAMETHASONE 20 MG/5 ML (4 MG/ML SOL) ONE (18:54)
[2018-04-26 20:39] VITALS: O2SAT 92
== END 2018-04-26 20:30 | disposition home or self-care (01) | DRG 103 ==
LOC: ED 14:38 → SUPCPDRO 14:38 → ED 20:30
DX: G43.911 Migraine, unspecified, intractable, with status migrainosus (principal)
CPT/HCPCS: 36415; 80048; 85025; 96365; 96366; 96374; 96375; 99283; 99285; J1100; J1200; J2060; A9270-GY; J1170; J3490

== ENCOUNTER 2018-04-27 15:35 | Emergency (ER) | payer OTHER ==
[2018-04-27] MEDS ORDERED: ONDANSETRON HCL 4 MG/2 ML SOL IV ONE (16:14)
[2018-04-27] MEDS ORDERED: HYDROMORPHONE HCL 2 MG/ML SOL IV ONE ×2 (16:14→18:31)
[2018-04-27] MEDS ORDERED: DIPHENHYDRAMINE 50 MG/ML SOL IV ONE ×3 (16:15→18:31)
[2018-04-27 16:17] VITALS: TEMP 99.3
[2018-04-27] MEDS ORDERED: HYDROMORPHONE 1 MG/ML SYRINGE ONE ×3 (16:18→18:39)
[2018-04-27] MEDS ORDERED: ONDANSETRON HCL 4 MG/2 ML SOL ONE (16:18)
[2018-04-27] MEDS ORDERED: DIPHENHYDRAMINE 50 MG/ML SOL ONE ×3 (16:18→18:39)
[2018-04-27] MEDS: SODIUM CHLORIDE 0.9% FLUSH 10 ML SOL IV PRN ×5 (16:24→19:32)
[2018-04-27] MEDS ORDERED: HYDROMORPHONE 1 MG/ML SYRINGE IV ONE (17:02)
[2018-04-27] MEDS ORDERED: LORAZEPAM 2 MG/ML SOL IV ONE (18:02)
[2018-04-27] MEDS ORDERED: SOLUMEDROL 125 MG/2 ML 125 MG/2 ML PDS IV ONE (18:02)
[2018-04-27] MEDS ORDERED: LORAZEPAM 2 MG/ML SOL ONE (18:17)
[2018-04-27] MEDS ORDERED: SOLUMEDROL 125 MG/2 ML 125 MG/2 ML PDS ONE (18:17)
[2018-04-27] MEDS ORDERED: KETOROLAC TROMETHAMINE 30 MG/ML SOL IV ONE (19:28)
[2018-04-27] MEDS ORDERED: KETOROLAC TROMETHAMINE 30 MG/ML SOL ONE (19:30)
[2018-04-27 19:44] VITALS: BP 171/101; PULSE 70; RESP 16; O2SAT 91
== END 2018-04-27 19:40 | disposition home or self-care (01) | DRG 103 ==
LOC: ED 15:35
DX: G43.711 Chronic migraine without aura, intractable, with status migrainosus (principal)
CPT/HCPCS: 96374; 96375; 99283; 99285; J1200; J1885; J2060; J2405; J2930; J1170

== ENCOUNTER 2018-05-31 13:32 | Emergency (ER) | payer OTHER ==
[2018-05-31] MEDS ORDERED: HYDROMORPHONE HCL 2 MG/ML SOL IV ONE ×3 (14:20→16:35)
[2018-05-31] MEDS ORDERED: DIPHENHYDRAMINE 50 MG/ML SOL IV ONE ×3 (14:21→17:53)
[2018-05-31] MEDS ORDERED: SOLUMEDROL 125 MG/2 ML 125 MG/2 ML PDS IV ONE (14:21)
[2018-05-31] MEDS ORDERED: SODIUM CHLORIDE 0.9% FLUSH 10 ML SOL IV PRN (14:23)
[2018-05-31] MEDS ORDERED: HYDROMORPHONE 1 MG/ML SYRINGE ONE ×4 (14:24→17:55)
[2018-05-31] MEDS ORDERED: SOLUMEDROL 125 MG/2 ML 125 MG/2 ML PDS ONE (14:24)
[2018-05-31] MEDS ORDERED: DIPHENHYDRAMINE 50 MG/ML SOL ONE ×3 (14:24→17:55)
[2018-05-31 14:38] LABS: BASOPHILS % (AUTO) 1 % (0-3); EOSINOPHILS % (AUTO) 1 % (0-9); HEMATOCRIT 45 % (35-47); HEMOGLOBIN 15.6 gm/dl (12.0-15.5); LYMPHOCYTES % (AUTO) 26.2 % (10-50); MEAN CORPUSCULAR HEMOGLOBIN 29.3 pg (27.0-32.0); MEAN CORPUSCULAR HGB CONC 34.5 gm/dl (32.0-36.0); MEAN CORPUSCULAR VOLUME 85 fL (81-99); MONOCYTES % (AUTO) 7.5 % (0-12)
[2018-05-31] MEDS: SODIUM CHLORIDE 0.9% 1000ML 1,000 ML IV SCH ×2 (14:41→15:31)
[2018-05-31 14:59] LABS: ALBUMIN 3.7 gm/dl (3.4-5.0); BILIRUBIN,TOTAL 0.7 mg/dl (0.2-1.0); CALCIUM 9.1 mg/dl (8.5-10.1); POTASSIUM 3.7 mMol/L (3.5-5.1)
[2018-05-31 15:22] VITALS: RESP 16; TEMP 98.3
[2018-05-31] MEDS ORDERED: KETOROLAC TROMETHAMINE 30 MG/ML SOL IV ONE (16:35)
[2018-05-31] MEDS ORDERED: METOCLOPRAMIDE HYDROCHLORIDE 5 MG/ML SOL IV ONE (16:35)
[2018-05-31] MEDS ORDERED: KETOROLAC TROMETHAMINE 30 MG/ML SOL ONE (16:55)
[2018-05-31] MEDS ORDERED: METOCLOPRAMIDE HYDROCHLORIDE 5 MG/ML SOL ONE (17:06)
[2018-05-31] MEDS ORDERED: HYDROMORPHONE 1 MG/ML SYRINGE IV ONE (18:00)
[2018-05-31 19:05] VITALS: BP 148/85; PULSE 79; O2SAT 93
== END 2018-05-31 18:50 | disposition home or self-care (01) | DRG 103 ==
LOC: ED 13:32
DX: G43.919 Migraine, unspecified, intractable, without status migrainosus (principal); R42 Dizziness and giddiness
CPT/HCPCS: 36415; 80053; 85025; 96365; 96374; 96375; 99283; 99285; J1200; J1885; J2765; J2930; J1170

== ENCOUNTER 2018-06-10 13:39 | Emergency (ER) | payer OTHER ==
[2018-06-10] MEDS ORDERED: SODIUM CHLORIDE 0.9% FLUSH 10 ML SOL IV PRN (13:45)
[2018-06-10] MEDS ORDERED: SODIUM CHLORIDE 0.9% 1000ML 1,000 ML IV ONE (14:15)
[2018-06-10] MEDS ORDERED: KETOROLAC TROMETHAMINE 30 MG/ML SOL IV ONE (14:16)
[2018-06-10] MEDS ORDERED: HYDROMORPHONE HCL 2 MG/ML SOL IV ONE ×4 (14:16→18:17)
[2018-06-10] MEDS ORDERED: DIPHENHYDRAMINE 50 MG/ML SOL IV ONE ×2 (14:16→15:52)
[2018-06-10] MEDS ORDERED: PROCHLORPERAZINE EDISYLATE 5 MG/ML SOL IV ONE (14:16)
[2018-06-10] MEDS ORDERED: DIPHENHYDRAMINE 50 MG/ML SOL ONE ×2 (14:20→15:59)
[2018-06-10] MEDS ORDERED: KETOROLAC TROMETHAMINE 30 MG/ML SOL ONE (14:20)
[2018-06-10] MEDS ORDERED: PROCHLORPERAZINE EDISYLATE 5 MG/ML SOL ONE (14:20)
[2018-06-10] MEDS ORDERED: HYDROMORPHONE 1 MG/ML SYRINGE ONE ×4 (14:20→18:18)
[2018-06-10 19:19] VITALS: BP 172/92; PULSE 90; RESP 12; TEMP 97.1; O2SAT 93
== END 2018-06-10 18:44 | disposition home or self-care (01) | DRG 103 ==
LOC: ED 13:39
DX: G43.519 Persistent migraine aura without cerebral infarction, intractable, without status migrainosus (principal)
CPT/HCPCS: 96365; 96366; 96374; 96375; 99283; 99285; J0780; J1200; J1885; J1170

== ENCOUNTER 2018-06-19 19:24 | Emergency (ER) | payer OTHER ==
[2018-06-19 19:36] VITALS: RESP 16; TEMP 98.5
[2018-06-19] MEDS ORDERED: KETOROLAC TROMETHAMINE 30 MG/ML SOL IV ONE (19:41)
[2018-06-19] MEDS ORDERED: HYDROMORPHONE HCL 2 MG/ML SOL IV ONE ×3 (19:41→21:52)
[2018-06-19] MEDS ORDERED: DIPHENHYDRAMINE 50 MG/ML SOL IV ONE ×2 (19:41→19:55)
[2018-06-19] MEDS ORDERED: PROCHLORPERAZINE EDISYLATE 5 MG/ML SOL IV ONE (19:41)
[2018-06-19] MEDS ORDERED: SODIUM CHLORIDE 0.9% 1000ML 1,000 ML IV ONE (19:42)
[2018-06-19] MEDS ORDERED: DIPHENHYDRAMINE 50 MG/ML SOL ONE ×2 (19:56→20:50)
[2018-06-19] MEDS ORDERED: HYDROMORPHONE 1 MG/ML SYRINGE ONE ×3 (19:59→21:59)
[2018-06-19] MEDS ORDERED: KETOROLAC TROMETHAMINE 30 MG/ML SOL ONE (19:59)
[2018-06-19] MEDS ORDERED: PROCHLORPERAZINE EDISYLATE 5 MG/ML SOL ONE (20:13)
[2018-06-19] MEDS: SODIUM CHLORIDE 0.9% FLUSH 10 ML SOL IV PRN ×2 (20:33→22:07)
[2018-06-19 22:31] VITALS: BP 163/91; PULSE 84; O2SAT 93
== END 2018-06-19 22:25 | disposition home or self-care (01) | DRG 103 ==
LOC: ED 19:24
DX: G43.919 Migraine, unspecified, intractable, without status migrainosus (principal)
CPT/HCPCS: 96365; 96366; 96374; 96375; 99283; 99285; J0780; J1200; J1885; J1170

== ENCOUNTER 2018-06-25 10:22 | Emergency (ER) | payer OTHER ==
[2018-06-25 10:26] VITALS: RESP 14; TEMP 95.8
[2018-06-25] MEDS ORDERED: KETOROLAC TROMETHAMINE 30 MG/ML SOL IV ONE (10:50)
[2018-06-25] MEDS ORDERED: HYDROMORPHONE HCL 2 MG/ML SOL IV ONE ×3 (10:50→14:22)
[2018-06-25] MEDS ORDERED: DIPHENHYDRAMINE 50 MG/ML SOL IV ONE ×2 (10:50→12:35)
[2018-06-25] MEDS ORDERED: PROCHLORPERAZINE EDISYLATE 5 MG/ML SOL IV ONE (10:55)
[2018-06-25] MEDS ORDERED: SODIUM CHLORIDE 0.9% 1000ML 1,000 ML IV ONE (10:55)
[2018-06-25] MEDS ORDERED: KETOROLAC TROMETHAMINE 30 MG/ML SOL ONE (11:02)
[2018-06-25] MEDS ORDERED: HYDROMORPHONE 1 MG/ML SYRINGE ONE ×3 (11:02→14:31)
[2018-06-25] MEDS ORDERED: PROCHLORPERAZINE EDISYLATE 5 MG/ML SOL ONE (11:02)
[2018-06-25] MEDS ORDERED: DIPHENHYDRAMINE 50 MG/ML SOL ONE ×2 (11:02→12:39)
[2018-06-25] MEDS ORDERED: HYDROMORPHONE 1 MG/ML SYRINGE IV ONE ×2 (12:38→14:32)
[2018-06-25 14:44] VITALS: PULSE 70
[2018-06-25 18:08] VITALS: BP 168/101; O2SAT 99
== END 2018-06-25 15:37 | disposition home or self-care (01) | DRG 103 ==
LOC: ED 10:22
DX: G43.519 Persistent migraine aura without cerebral infarction, intractable, without status migrainosus (principal)
CPT/HCPCS: 96365; 96366; 96374; 96375; 99283; 99285; J0780; J1200; J1885; J1170

== ENCOUNTER 2018-08-06 08:11 | Emergency (ER) | payer OTHER ==
[2018-08-06 08:17] VITALS: RESP 16; TEMP 96
[2018-08-06] MEDS ORDERED: KETOROLAC TROMETHAMINE 30 MG/ML SOL IV ONE (09:08)
[2018-08-06] MEDS ORDERED: DIPHENHYDRAMINE 50 MG/ML SOL IV ONE ×2 (09:08→10:40)
[2018-08-06] MEDS ORDERED: ONDANSETRON HCL 4 MG/2 ML SOL IV ONE (09:08)
[2018-08-06] MEDS ORDERED: HYDROMORPHONE 1 MG/ML SYRINGE ONE ×5 (09:12→14:50)
[2018-08-06] MEDS ORDERED: KETOROLAC TROMETHAMINE 30 MG/ML SOL ONE (09:12)
[2018-08-06] MEDS ORDERED: DIPHENHYDRAMINE 50 MG/ML SOL ONE ×2 (09:12→10:22)
[2018-08-06] MEDS ORDERED: ONDANSETRON HCL 4 MG/2 ML SOL ONE (09:13)
[2018-08-06] MEDS ORDERED: HYDROMORPHONE 1 MG/ML SYRINGE IV SCH (09:15)
[2018-08-06] MEDS ORDERED: SODIUM CHLORIDE 0.9% 1000ML 1,000 ML IV SCH (09:15)
[2018-08-06] MEDS ORDERED: HYDROMORPHONE HCL 2 MG/ML SOL IV ONE ×2 (10:21→14:46)
[2018-08-06] MEDS ORDERED: SOLUMEDROL 125 MG/2 ML 125 MG/2 ML PDS ONE (11:39)
[2018-08-06] MEDS ORDERED: SOLUMEDROL 125 MG/2 ML 125 MG/2 ML PDS IV ONE ×2 (11:44→11:58)
[2018-08-06] MEDS ORDERED: HYDROMORPHONE 1 MG/ML SYRINGE IV ONE ×2 (12:44→13:27)
[2018-08-06 14:25] VITALS: BP 164/81; PULSE 82; O2SAT 97
== END 2018-08-06 15:14 | disposition home or self-care (01) | DRG 103 ==
LOC: ED 08:11
DX: G43.519 Persistent migraine aura without cerebral infarction, intractable, without status migrainosus (principal)
CPT/HCPCS: 96365; 96366; 96374; 96375; 99283; 99285; J1200; J1885; J2405; J2930; J1170

== ENCOUNTER 2018-09-02 16:18 | Emergency (ER) | payer OTHER ==
[2018-09-02 16:27] VITALS: TEMP 96
[2018-09-02] MEDS ORDERED: HYDROMORPHONE HCL 2 MG/ML SOL IV ONE ×2 (16:33→19:21)
[2018-09-02] MEDS ORDERED: DIPHENHYDRAMINE 50 MG/ML SOL IV ONE ×3 (16:34→19:21)
[2018-09-02] MEDS ORDERED: SODIUM CHLORIDE 0.9% 1000ML 1,000 ML IV ONE (17:30)
[2018-09-02] MEDS ORDERED: HYDROMORPHONE 1 MG/ML SYRINGE ONE ×3 (17:35→19:25)
[2018-09-02] MEDS ORDERED: DIPHENHYDRAMINE 50 MG/ML SOL ONE ×3 (17:36→19:26)
[2018-09-02] MEDS ORDERED: HYDROMORPHONE 1 MG/ML SYRINGE IV ONE (18:35)
[2018-09-02] MEDS ORDERED: KETOROLAC TROMETHAMINE 30 MG/ML SOL IV ONE (20:16)
[2018-09-02] MEDS ORDERED: KETOROLAC TROMETHAMINE 30 MG/ML SOL ONE (20:17)
[2018-09-02 20:31] VITALS: BP 173/83; PULSE 88; RESP 14; O2SAT 92
== END 2018-09-02 20:40 | disposition home or self-care (01) | DRG 103 ==
LOC: ED 16:18
DX: G43.909 Migraine, unspecified, not intractable, without status migrainosus (principal)
CPT/HCPCS: 96365; 96366; 96374; 96375; 99283; 99285; J1200; J1885; J1170

== ENCOUNTER 2018-10-19 16:43 | Emergency (ER) | payer OTHER ==
[2018-10-19] MEDS ORDERED: DIPHENHYDRAMINE 50 MG/ML SOL IV ONE ×2 (17:10→18:18)
[2018-10-19] MEDS ORDERED: KETOROLAC TROMETHAMINE 30 MG/ML SOL IV ONE (17:10)
[2018-10-19] MEDS ORDERED: HYDROMORPHONE HCL 2 MG/ML SOL IV ONE (17:10)
[2018-10-19] MEDS ORDERED: SOLUMEDROL 125 MG/2 ML 125 MG/2 ML PDS IV ONE (17:10)
[2018-10-19] MEDS ORDERED: ONDANSETRON HCL 4 MG/2 ML SOL IV ONE (17:11)
[2018-10-19 17:19] VITALS: RESP 16
[2018-10-19] MEDS ORDERED: KETOROLAC TROMETHAMINE 30 MG/ML SOL ONE (17:27)
[2018-10-19] MEDS ORDERED: DIPHENHYDRAMINE 50 MG/ML SOL ONE ×2 (17:27→18:21)
[2018-10-19] MEDS ORDERED: HYDROMORPHONE 1 MG/ML SYRINGE ONE ×2 (17:27→18:20)
[2018-10-19] MEDS ORDERED: ONDANSETRON HCL 4 MG/2 ML SOL ONE (17:27)
[2018-10-19] MEDS ORDERED: SOLUMEDROL 125 MG/2 ML 125 MG/2 ML PDS ONE (17:27)
[2018-10-19] MEDS: SODIUM CHLORIDE 0.9% 1000ML 1,000 ML IV SCH ×2 (17:28→19:17)
[2018-10-19] MEDS ORDERED: SODIUM CHLORIDE 0.9% FLUSH 10 ML SOL IV PRN (17:32)
[2018-10-19 17:52] VITALS: TEMP 97.2
[2018-10-19] MEDS ORDERED: HYDROMORPHONE 1 MG/ML SYRINGE IV PRN (18:19)
[2018-10-19 19:13] VITALS: BP 170/90; PULSE 92; O2SAT 94
== END 2018-10-19 20:05 | disposition home or self-care (01) | DRG 103 ==
LOC: ED 16:43
DX: G43.519 Persistent migraine aura without cerebral infarction, intractable, without status migrainosus (principal)
CPT/HCPCS: 96365; 96366; 96374; 96375; 99283; 99285; J1200; J1885; J2405; J2930; J1170

== ENCOUNTER 2018-11-06 10:08 | Emergency (ER) | payer OTHER ==
[2018-11-06] MEDS ORDERED: HYDROMORPHONE HCL 2 MG/ML SOL IV ONE (10:27)
[2018-11-06] MEDS ORDERED: HYDROMORPHONE HCL 2 MG/ML SOL IV PRN (10:27)
[2018-11-06] MEDS ORDERED: ONDANSETRON HCL 4 MG/2 ML SOL IV ONE (10:28)
[2018-11-06] MEDS ORDERED: DIPHENHYDRAMINE 50 MG/ML SOL IV ONE ×4 (10:28→16:01)
[2018-11-06] MEDS ORDERED: SODIUM CHLORIDE 0.9% 1000ML 1,000 ML IV ONE (10:29)
[2018-11-06] MEDS ORDERED: DIPHENHYDRAMINE 50 MG/ML SOL ONE ×4 (10:32→16:02)
[2018-11-06] MEDS ORDERED: ONDANSETRON HCL 4 MG/2 ML SOL ONE (10:32)
[2018-11-06] MEDS ORDERED: HYDROMORPHONE 1 MG/ML SYRINGE ONE ×5 (10:32→15:55)
[2018-11-06] MEDS ORDERED: HYDROMORPHONE 1 MG/ML SYRINGE IV ONE ×3 (10:33→15:54)
[2018-11-06] MEDS ORDERED: HYDROMORPHONE 1 MG/ML SYRINGE IV PRN ×2 (10:51→11:51)
[2018-11-06] MEDS ORDERED: KETOROLAC TROMETHAMINE 30 MG/ML SOL IV ONE (14:06)
[2018-11-06] MEDS ORDERED: KETOROLAC TROMETHAMINE 30 MG/ML SOL ONE (14:08)
[2018-11-06 16:18] VITALS: RESP 14
[2018-11-06 16:38] VITALS: BP 173/108; PULSE 77; TEMP 97.6; O2SAT 99
== END 2018-11-06 16:55 | disposition short-term general hospital (02) | DRG 103 ==
LOC: ED 10:08
DX: G43.119 Migraine with aura, intractable, without status migrainosus (principal); Z79.01 Long term (current) use of anticoagulants
CPT/HCPCS: 70450; 96365; 96366; 96374; 96375; 99283; 99285; J1200; J1885; J2405; J1170

== ENCOUNTER 2018-11-10 16:16 | Emergency (ER) | payer OTHER ==
[2018-11-10 16:22] VITALS: TEMP 97
[2018-11-10] MEDS ORDERED: DIPHENHYDRAMINE 50 MG/ML SOL IV ONE ×3 (16:40→19:44)
[2018-11-10] MEDS ORDERED: HYDROMORPHONE HCL 2 MG/ML SOL IV ONE (16:41)
[2018-11-10] MEDS ORDERED: KETOROLAC TROMETHAMINE 30 MG/ML SOL IV ONE (16:43)
[2018-11-10] MEDS ORDERED: ONDANSETRON HCL 4 MG/2 ML SOL IV ONE (16:43)
[2018-11-10] MEDS ORDERED: SODIUM CHLORIDE 0.9% 1000ML 1,000 ML IV SCH (16:45)
[2018-11-10] MEDS ORDERED: ONDANSETRON HCL 4 MG/2 ML SOL ONE (17:09)
[2018-11-10] MEDS ORDERED: KETOROLAC TROMETHAMINE 30 MG/ML SOL ONE (17:10)
[2018-11-10] MEDS ORDERED: DIPHENHYDRAMINE 50 MG/ML SOL ONE ×3 (17:26→19:46)
[2018-11-10] MEDS: SODIUM CHLORIDE 0.9% 1000ML 1,000 ML IV SCH ×2 (17:33→17:46)
[2018-11-10] MEDS ORDERED: HYDROMORPHONE 1 MG/ML SYRINGE ONE ×2 (17:45→18:41)
[2018-11-10] MEDS ORDERED: HYDROMORPHONE 1 MG/ML SYRINGE IV ONE (18:37)
[2018-11-10] MEDS ORDERED: PROMETHAZINE HYDROCHLORIDE 25 MG/ML SOL IV ONE (18:59)
[2018-11-10] MEDS ORDERED: PROMETHAZINE HYDROCHLORIDE 25 MG/ML SOL ONE (19:20)
[2018-11-11 02:06] VITALS: O2SAT 93
[2018-11-11 02:07] VITALS: BP 182/98; PULSE 75; RESP 77
== END 2018-11-10 22:25 | disposition home or self-care (01) | DRG 103 ==
LOC: ED 16:16
DX: G43.519 Persistent migraine aura without cerebral infarction, intractable, without status migrainosus (principal)
CPT/HCPCS: 96365; 96366; 96374; 96375; 99283; 99285; J1200; J1885; J2405; J2550; J1170

== ENCOUNTER 2018-11-13 16:07 | Emergency (ER) | payer OTHER ==
[2018-11-13] MEDS ORDERED: SODIUM CHLORIDE 0.9% FLUSH 10 ML SOL IV PRN (16:57)
[2018-11-13] MEDS ORDERED: SODIUM CHLORIDE 0.9% 1000ML 1,000 ML IV ONE (16:57)
[2018-11-13] MEDS ORDERED: HYDROMORPHONE 1 MG/ML SYRINGE IV ONE ×2 (16:58→18:22)
[2018-11-13] MEDS ORDERED: DIPHENHYDRAMINE 50 MG/ML SOL IV ONE ×2 (16:58→18:23)
[2018-11-13] MEDS ORDERED: METOCLOPRAMIDE HYDROCHLORIDE 5 MG/ML SOL ONE (17:26)
[2018-11-13] MEDS ORDERED: DIPHENHYDRAMINE 50 MG/ML SOL ONE ×2 (17:26→18:27)
[2018-11-13] MEDS ORDERED: HYDROMORPHONE 1 MG/ML SYRINGE ONE ×3 (17:26→19:11)
[2018-11-13] MEDS ORDERED: METOCLOPRAMIDE HYDROCHLORIDE 5 MG/ML SOL IV ONE (18:02)
[2018-11-13] MEDS ORDERED: DEXAMETHASONE 20 MG/5 ML (4 MG/ML SOL) IV ONE (18:22)
[2018-11-13] MEDS ORDERED: HYDROMORPHONE 1 MG/ML SYRINGE IV PRN (18:22)
[2018-11-13 18:23] VITALS: RESP 20; TEMP 98.2
[2018-11-13] MEDS ORDERED: DEXAMETHASONE 20 MG/5 ML (4 MG/ML SOL) ONE (18:27)
[2018-11-13] MEDS ORDERED: SODIUM CHLORIDE 0.9% 500 ML 500 ML IV ONE (18:45)
[2018-11-13] MEDS ORDERED: LORAZEPAM 2 MG/ML SOL IV ONE (20:38)
[2018-11-13] MEDS ORDERED: LORAZEPAM 2 MG/ML SOL ONE (20:45)
[2018-11-13 21:18] VITALS: BP 175/93; PULSE 98; O2SAT 94
== END 2018-11-13 21:05 | disposition short-term general hospital (02) | DRG 103 ==
LOC: ED 16:07
DX: G43.519 Persistent migraine aura without cerebral infarction, intractable, without status migrainosus (principal)
CPT/HCPCS: 96365; 96366; 96374; 96375; 99283; 99285; J1100; J1200; J2060; J2765; J1170

== ENCOUNTER 2018-11-23 15:18 | Emergency (ER) | payer OTHER ==
[2018-11-23] MEDS ORDERED: ACETAMINOPHEN 325 MG PO ONE (16:23)
[2018-11-23] MEDS ORDERED: KETOROLAC TROMETHAMINE 30 MG/ML SOL IM ONE (16:23)
[2018-11-23] MEDS ORDERED: OXYCODONE HYDROCHLORIDE 10 MG TER PO ONE (16:25)
[2018-11-23 16:30] VITALS: TEMP 96.9
[2018-11-23] MEDS ORDERED: ACETAMINOPHEN 325 MG ONE (16:32)
[2018-11-23] MEDS ORDERED: KETOROLAC TROMETHAMINE 30 MG/ML SOL ONE (16:32)
[2018-11-23] MEDS ORDERED: OXYCODONE HYDROCHLORIDE 10 MG TER ONE (16:39)
[2018-11-23 17:13] LABS: CREATININE 0.71 mg/dl (0.60-1.00)
[2018-11-23] MEDS ORDERED: HYDROMORPHONE HYDROCHLORIDE 2 MG TAB PO ONE ×2 (19:07→19:23)
[2018-11-23 19:13] LABS: BASOPHILS % (AUTO) 1 % (0-3); EOSINOPHILS % (AUTO) 2 % (0-9); HEMATOCRIT 45 % (35-47); HEMOGLOBIN 14.5 gm/dl (12.0-15.5); LYMPHOCYTES % (AUTO) 20.1 % (10-50); MEAN CORPUSCULAR HEMOGLOBIN 28.6 pg (27.0-32.0); MEAN CORPUSCULAR HGB CONC 32.4 gm/dl (32.0-36.0); MEAN CORPUSCULAR VOLUME 88 fL (81-99); NEUTROPHILS % (AUTO) 67.1 % (37-80)
[2018-11-23 20:12] VITALS: BP 111/76; PULSE 70; RESP 20; O2SAT 99
== END 2018-11-23 19:50 | disposition home or self-care (01) | DRG 552 ==
LOC: ED 15:18
DX: M54.9 Dorsalgia, unspecified (principal); Z79.01 Long term (current) use of anticoagulants
CPT/HCPCS: 36415; 72132; 82565; 85025; 96372; 99284; J1885; Q9967; A9270-GY